=== PATIENT | male | born 1995 | race Caucasian/White ===

== ENCOUNTER 2020-07-30 02:15 | Emergency (ER) | payer MEDICAID ==
[~2020-07-30] VITALS: Ht 180.3 cm; Wt 97.5 kg
--- NOTE | 2020-07-30 02:15 | NUR ---
PT BIB [facility], PREBOOK. TAKEN TO CHAIR
[2020-07-30 02:24] VITALS: BP 136/93
[2020-07-30 02:28] VITALS: BP 136/93
--- NOTE | 2020-07-30 03:00 | NUR ---
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
== END 2020-07-30 03:00 ==
LOC: MED 02:15
DX: F10.129 Alcohol abuse with intoxication, unspecified (principal); K50.90 Crohn's disease, unspecified, without complications; Z02.89 Encounter for other administrative examinations; V89.2XXA Person injured in unspecified motor-vehicle accident, traffic, initial encounter; Y93.89 Activity, other specified; Y92.89 Other specified places as the place of occurrence of the external cause; Y99.8 Other external cause status
CPT/HCPCS: 99283